=== PATIENT | male | born 1950 ===

== ENCOUNTER 2017-11-20 16:59 | Emergency (ER) | payer OTHER ==
[2017-11-20 17:08] VITALS: BMI 25.6
[2017-11-20] MEDS ORDERED: Sodium Chloride 0.9% 1,000 ML IV STA (18:33)
--- NOTE | 2017-11-20 18:38 | C.PDOC ---
History Of Present Illness 67 y/o M c PMHx DM p/w dizziness and posterior neck pain x 3 days. Patient states he has had this pain for over 2 months but that it is much worse in the past 3 days. He describes the dizziness as a lightheadedness and denies a spinning sensation. He states it is associated with an achy posterior neck pain and the lightheadedness seems to be reproducible when flexing the neck forward. He also reports mild frontal headache. He states he did not go to clinic for these symptoms because they were not open. He also reports a R sided lower back pain that is worse when walking and has been present for years and numbness of his bilateral feet for a very long time, saw podiatry yesterday. He denies fever , neck stiffness, nausea, vomiting, dyspnea, chest pain, palpitations, dysuria, hematuria, motor weakness, syncope. Time Seen by Provider: 11/20/17 18:00 Chief Complaint (Nursing): Dizziness/Lightheaded Past Medical History Vital Signs: Last Vital Signs Temp 99.5 F 11/20/17 17:08 Pulse 83 11/20/17 17:08 Resp 18 11/20/17 17:08 BP 130/73 11/20/17 17:08 Pulse Ox 98 11/20/17 20:03 Family History: States: No Known Family Hx - Social History Hx Alcohol Use: No Hx Substance Use: No - Immunization History Hx Tetanus Toxoid Vaccination: No Hx Influenza Vaccination: No Hx Pneumococcal Vaccination: No Review Of Systems Except As Marked, All Systems Reviewed And Found Negative. Constitutional: Negative for: Fever Respiratory: Negative for: Shortness of Breath Physical Exam - Physical Exam Additional Physical Exam Comments: Constitutional: No acute distress. Head: Normocephalic. Atraumatic. Eyes: PERRL. ENT: Moist mucous membranes. Neck: Supple. No midline tenderness. No nuchal rigidity. Cardiovascular: Regular rate. Radial pulse 2+ bilaterally. Chest: No tenderness. Respiratory: Clear to auscultation bilaterally. GI: Soft. Nontender. Nondistended. Back: No CVA tenderness. No midline tenderness. Musculoskeletal: No tenderness or swelling of extremities. Skin: No rash. Neurologic: Alert, no focal deficit. Finger to nose, heel to ramírez normal. Gait steady. Romberg normal. ED Course And Treatment - Laboratory Results Result Diagrams: 11/20/17 18:51 11/20/17 18:51 O2 Sat by Pulse Oximetry: 98 Medical Decision Making Medical Decision Making: Head CT FINDINGS: Brain: There is diffuse cerebral atrophy present, consistent with this patient' s age. There are chronic microvascular ischemic changes. No hemorrhage. Ventricles: Unremarkable. No ventriculomegaly. Bones/joints: Unremarkable. No acute fracture. Soft tissues: Unremarkable. Sinuses: There is mucosal thickening in the ethmoid sinuses. Mastoid air cells: Unremarkable as visualized. No mastoid effusion. IMPRESSION: No acute findings Cervical spine CT FINDINGS: Vertebrae: there is a suggestion of multiple lucent ovoid osseous lesions in the cervical spine; for example, 2 separate osseous lesions are questioned anteriorly and posteriorly in the C4 vertebral body. No acute fracture. Discs/spinal canal/neural foramina: There is severe subchondral sclerosis and at C5-6 and C6-7. There is mild C5-C6 and C6-C7 disc osteophyte complex formation and with broad- based disc bulges. There is bilateral moderate facet hypertrophy at C7-T1. No spinal canal stenosis. Soft tissues: Unremarkable. Lung apices: Mild subpleural emphysema is noted at the lung bases. IMPRESSION: Question multiple vertebral osseous lesions, for which diagnostic considerations would include metastasis and myeloma. MRI correlation may be of value. Emphysema. Moderate cervical and spondylosis. Labs unremarkable. EKG shows no arrhythmia, 82 bpm, NSR, no ST elevations. Informed patient and family at bedside of CT spine results. Disposition - Disposition Referrals: [facility] [Outside] Disposition: HOME/ ROUTINE Disposition Time: 20:47 Condition: STABLE Additional Instructions: FINDINGS: Brain: There is diffuse cerebral atrophy present, consistent with this patient' s age. There are chronic microvascular ischemic changes. No hemorrhage. Ventricles: Unremarkable. No ventriculomegaly. Bones/joints: Unremarkable. No acute fracture. Soft tissues: Unremarkable. Sinuses: There is mucosal thickening in the ethmoid sinuses. Mastoid air cells: Unremarkable as visualized. No mastoid effusion. IMPRESSION: No acute findings FINDINGS: Vertebrae: there is a suggestion of multiple lucent ovoid osseous lesions in the cervical spine; for example, 2 separate osseous lesions are questioned anteriorly and posteriorly in the C4 vertebral body. No acute fracture. Discs/spinal canal/neural foramina: There is severe subchondral sclerosis and at C5-6 and C6-7. There is mild C5-C6 and C6-C7 disc osteophyte complex formation and with broad- based disc bulges. There is bilateral moderate facet hypertrophy at C7-T1. No spinal canal stenosis. Soft tissues: Unremarkable. Lung apices: Mild subpleural emphysema is noted at the lung bases. IMPRESSION: Question multiple vertebral osseous lesions, for which diagnostic considerations would include metastasis and myeloma. MRI correlation may be of value. Emphysema. Moderate cervical and spondylosis. Instructions: Bone Metastasis Forms: [employer] (Icelandic) - Clinical Impression Clinical Impression: Lightheaded, Neck pain, Metastasis to vertebral column of unknown origin - Scribe Statement The provider has reviewed the documentation as recorded by the Scribe Akbar Bee All medical record entries made by the Scribe were at my direction and personally dictated by me. I have reviewed the chart and agree that the record accurately reflects my personal performance of the history, physical exam, medical decision making, and the department course for this patient. I have also personally directed, reviewed, and agree with the discharge instructions and disposition.
[2017-11-20] MEDS ORDERED: Sodium Chloride 0.9% 1,000 ML ONE (18:49)
[2017-11-20 18:54] LABS: BASO % 0.7 % (0.0-2.0); EOS # 0.1 K/uL (0.0-0.7); EOS % 2.2 % (0.0-4.0); HEMOGLOBIN 11.8 g/dL (12.0-18.0); LYMPH # 0.8 K/uL (1.0-4.3); MEAN CELL VOLUME 89.9 fL (80.0-94.0); MEAN CORPUSCULAR HEMOGLOBIN 30.9 pg (27.0-31.0); MEAN CORPUSCULAR HGB CONC 34.3 g/dL (33.0-37.0); MEAN PLATELET VOLUME 10.6 fL (7.2-11.7); MONO % 18.6 % (0.0-10.0); NEUT # 3.5 K/uL (1.8-7.0); NEUT % 63.5 % (50.0-75.0); NRBC % 0.1 % (0.0-2.0); RBC 3.82 Mil/uL (4.40-5.90); RED CELL DISTRIBUTION WIDTH 12.8 % (11.5-14.5); WHITE BLOOD COUNT 5.5 K/uL (4.8-10.8)
[2017-11-20 19:00] LABS: URINE BACTERIA RARE (<OCC); URINE BILIRUBIN NEGATIVE (NEGATIVE); URINE BLOOD 1+ (NEGATIVE); URINE CLARITY Hazy (Clear); URINE COLOR Yellow (YELLOW); URINE GLUCOSE (UA) NORMAL (Normal); URINE LEUKOCYTE ESTERASE NEG Leu/uL (Negative); URINE PROTEIN 2+ mg/dL (NEGATIVE); URINE UROBILINOGEN NORMAL mg/dL (0.2-1.0)
[2017-11-20 19:08] LABS: ALB/GLOB RATIO 1.2 (1.0-2.1); ALT/SGPT 36 U/L (21-72); AST/SGOT 31 U/L (17-59); BLOOD UREA NITROGEN 14 mg/dL (9-20); CALCIUM 9.4 mg/dl (8.6-10.4); GFR AFRICAN-AMERICAN > 60; GFR NON-AFRICAN AMERICAN > 60
[2017-11-20 22:10] VITALS: BP 142/79; PULSE 73; RESP 20; TEMP 98.8; O2SAT 96
--- NOTE | 2017-11-21 08:11 | CT ---
Date of service: 11/20/2017 PROCEDURE: CT HEAD WITHOUT CONTRAST. HISTORY: headache COMPARISON: None available. TECHNIQUE: Axial computed tomography images were obtained through the head/brain without intravenous contrast. Radiation dose: Total exam DLP = 866 mGy-cm. This CT exam was performed using one or more of the following dose reduction techniques: Automated exposure control, adjustment of the mA and/or kV according to patient size, and/or use of iterative reconstruction technique. FINDINGS: HEMORRHAGE: No intracranial hemorrhage. BRAIN: Diffuse cerebral atrophy present. Scattered focal lucencies in the subcortical and periventricular white matter suggestive for chronic microvascular ischemic change. VENTRICLES: Unremarkable. No hydrocephalus. CALVARIUM: Unremarkable. PARANASAL SINUSES: Mucosal thickening in the ethmoid sinuses. MASTOID AIR CELLS: Unremarkable as visualized. No inflammatory changes. OTHER FINDINGS: None. IMPRESSION: No acute intracranial abnormality. If focal neurologic deficit persists, consider correlation with MRI. These findings were preliminarily reported at 7:47 p.m. on 11/20/[address] Adrianne Houston from [facility].
--- NOTE | 2017-11-21 08:40 | CT ---
Date of service: 11/20/2017 PROCEDURE: CT Cervical Spine without contrast HISTORY: neck pain COMPARISON: None available. TECHNIQUE: Axial computed tomography images were obtained of the cervical spine without the use of intravenous contrast. Coronal and sagittal reformatted images were created and reviewed. Radiation dose: Total exam DLP = 421.81 mGy-cm. This CT exam was performed using one or more of the following dose reduction techniques: Automated exposure control, adjustment of the mA and/or kV according to patient size, and/or use of iterative reconstruction technique. FINDINGS: VERTEBRAE: The vertebral bodies are maintained in height. Normal alignment is maintained. The atlantoaxial articulation and odontoid process are intact. Multiple circumscribed rounded lucent lesions are seen in multiple cervical vertebral bodies. This raises suspicion of multiple myeloma or metastatic disease. Consider further radiographic evaluation as well as correlation with immuno electrophoresis. DISCS/SPINAL CANAL/NEURAL FORAMINA: There is mild narrowing of the C5-6 and C6-7 intervertebral disc spaces consistent with degenerative disc disease. The remaining intervertebral disc spaces are maintained in height. PARASPINAL SOFT TISSUES: Numerous prominent lymph nodes are noted in levels 1, 2 and 3 without pathologic enlargement greater than 1.5 cm short axis. OTHER FINDINGS: None. IMPRESSION: No fracture/ dislocation. Degenerative disc disease C5-6 and C6-7. Numerous circumscribed small lytic lesions of the cervical vertebrae. Consider metastasis or multiple myeloma. Mild cervical lymphadenopathy. The preliminary findings for this examination were reported by [facility] at 8:02 p.m. on 11/20/2017. There is concurrence of this report with the preliminary findings.
--- NOTE | 2017-11-21 10:54 | RAD ---
Chest x-ray two views History: Pneumonia. Comparison: None available. Findings: Mild venous congestion. Biapical pleural thickening with upper lobe granulomatous changes. Bilateral hilar prominence. Tortuous ectatic aorta. Degenerative changes in the spine and shoulders. Impression: Mild venous congestion. Biapical pleural thickening with upper lobe granulomatous changes. Bilateral hilar prominence. Tortuous ectatic aorta.
--- NOTE | 2017-11-21 23:40 | CARD ---
APPROVED REPORT Date of service: 11/20/2017 EKG Measurement Heart [id number] <Conclusion> Normal sinus rhythm T wave abnormality, consider lateral ischemia Abnormal ECG
== END 2017-11-20 22:11 | disposition home or self-care (01) ==
LOC: C.ER 16:59
DX: R42 Dizziness and giddiness (principal); M54.2 Cervicalgia; C79.51 Secondary malignant neoplasm of bone
CPT/HCPCS: 70450; 71046; 72125; 80053; 81001; 82948; 85025; 87086; 93005; 96361; 96374; 99285; J1885; J7030

== ENCOUNTER 2017-11-23 14:01 | Inpatient (IN) | payer OTHER ==
[2017-11-23 14:14] VITALS: BMI 26.6
--- NOTE | 2017-11-23 14:20 | C.PDOC ---
History Of Present Illness 67 year old male presents to the ER with tongue numbness onset 1 hour [employer]OLD[employer] that has resolved, now complaining of numbness to the tips of his left 2nd to 5th fingers and some weakness to the left arm and bilateral legs. Patient states is able to ambulate without any difficulty, denies any other complaints. Patient was seen on the 11/20/17 for vertigo like dizziness and neck pain. Patient reports he is compliant with his diabetes medication. Time Seen by Provider: 11/23/17 14:19 Chief Complaint (Nursing): Dizziness/Lightheaded History Per: Patient History/Exam Limitations: no limitations Onset/Duration Of Symptoms: Hrs Current Symptoms Are (Timing): Still Present Recent travel outside of the [place]: No Past Medical History Reviewed: Historical Data, Nursing Documentation, Vital Signs Vital Signs: Last Vital Signs Temp 98.6 F 11/23/17 14:14 Pulse 85 11/23/17 14:14 Resp 18 11/23/17 14:14 BP 115/69 11/23/17 14:14 Pulse Ox 99 11/23/17 15:06 - Medical History PMH: Diabetes Family History: States: Unknown Family Hx - Social History Hx Alcohol Use: No Hx Substance Use: No - Immunization History Hx Tetanus Toxoid Vaccination: No Hx Influenza Vaccination: No Hx Pneumococcal Vaccination: No Review Of Systems Except As Marked, All Systems Reviewed And Found Negative. Cardiovascular: Negative for: Chest Pain, Palpitations Respiratory: Negative for: Cough, Shortness of Breath Gastrointestinal: Negative for: Nausea, Vomiting Neurological: Positive for: Weakness, Numbness Physical Exam - Physical Exam Appears: Non-toxic Skin: Normal Color, Warm, Dry Head: Atraumatic, Normacephalic Eye(s): bilateral: Normal Inspection, PERRL, EOMI Oral Mucosa: Moist Neck: Normal, No Midline Cervical Tenderness, No Paracervical Tenderness, Supple Chest: Symmetrical, No Tenderness Cardiovascular: Rhythm Regular Respiratory: Normal Breath Sounds, No Rales, No Rhonchi, No Wheezing Gastrointestinal/Abdominal: Soft, No Tenderness Extremity: No Normal ROM (x4) Neurological/Psych: Other (See NIH) ED Course And Treatment - Laboratory Results Result Diagrams: 11/23/17 14:25 11/23/17 14:25 ECG: Interpreted By Me, Viewed By Me ECG Rhythm: Sinus Rhythm ECG Interpretation: Normal, No Changes From Prior (11/20/17) Interpretation Of ECG: T wave inversions at 1, 2, F, v3-6 Rate From EC O2 Sat by Pulse Oximetry: 99 (Room air) Pulse Ox Interpretation: Normal NIHSS Stroke Scale - Date/Time Evaluation Performed Date Performed: 11/23/17 Time Performed: 14:19 When Was NIHSS Performed: Code Stroke - How Severe is the Stroke Level of Consciousness: 0=Alert LOC to Questions: 0=Both comments correct LOC to commands: 0=Obeys both correctly Best Gaze: 0=Normal Visual: 0=No visual loss Facial: 0=Normal Motor Arm - Left: 0=No drift Motor Arm - Right: 0=No drift Motor Leg - Left: 0=No drift Motor Leg - Right: 0=No drift Limb Ataxia: 0=Absent Sensory: 1=Mild to moderate loss Best Language: 0=No aphasia Dysarthia: 0=Normal articulation Extinction & Inattention (Neglect): 0=Normal, no object Score: 1 NIHSS Stroke Scale 2 - Date/Time Evaluation Performed Date Performed: 11/23/17 Time Performed: 14:59 When Was NIHSS Performed: Code Stroke Re-evaluation - How Severe is the Stroke Level of Consciousness: 0=Alert LOC to Questions: 0=Both comments correct LOC to commands: 0=Obeys both correctly Best Gaze: 0=Normal Visual: 0=No visual loss Facial: 0=Normal Motor Arm - Left: 0=No drift Motor Arm - Right: 0=No drift Motor Leg - Left: 0=No drift Motor Leg - Right: 0=No drift Limb Ataxia: 0=Absent Sensory: 1=Mild to moderate loss Best Language: 0=No aphasia Dysarthia: 0=Normal articulation Extinction & Inattention (Neglect): 0=Normal, no object Score: 1 Progress - Re-Evaluation Re-evaluation Note: 11/23/17 14:22 D/W DR CULVER AWARE OF ER FINDINGS. PT NOT A TPA CANDIDATE 11/23/17 14:[address] GONZALEZ 11/23/17 14:59 PS TRIED TO FU @ [facility] TODAY BUT [facility] WAS A WALK IN, WAS REFERRED TO ER 11/23/17 15:17 D/W DR Manas BEE WILL ADMIT - Data Reviewed Data Reviewed: Lab, Diagnostic imaging, EKG, Old records - Critical Care Citical Care: Excluding Proc Time Critical Care Time: 90 minutes rTPA Inclusion/Exclusion - Refusal of Treatment Patient Refused Treatment: No - Inclusion Criteria for Altepase Patient is 18 years or Older: Yes The Clinical Diagnosis of Ischemic Stroke That is Causing a Potentially Disabling Neurological Deficit: Yes Time of Onset is Well Established to be Less Than 270 Minute Before Treatment Would Begin: Yes Risk/Benefit Discussed With Patient/Family Member Present: Yes - Exclusion Criteria for Altepase Uncontrolled Hypertension at Time of Treatment (Systolic BP above 185 or Diastolic BP above 110 mmHg): No Active Internal Bleeding: No Known Bleeding Diathesis Including but Not Limited to: Platelets Below 100,000/ mm,PTT Above 40 sec After Heparin Use, Current Use of Oral Anitcoagulant With INR Greater Than 1.7 or PT Greater Than 15 secs: No Evidence of an Intracranial Hemorrhage: No Evidence of Major Acute Infarct With Signs Greater Than 1/3 MCA Territory: No Suspicion of Subarachnoid Hemorrhage on Pretreatment Evaluation Even if CT Head Negative For Hemorrhage: No - Warning to TPA With Conditions Following Conditions Weighed Against Anticipated Benefit: Yes Condition: Stroke Serevity Too Mild Medical Decision Making Medical Decision Making: Plan: * Blood work * CT head * EKG * CXR Disposition Counseled Patient/Family Regarding: Studies Performed, Diagnosis - Disposition Disposition: HOSPITALIZED Disposition Time: 15:23 Condition: STABLE Forms: [email or web address] [facility] (Indian) - POA Present On Arrival: None - Clinical Impression Clinical Impression: Metastasis to vertebral column of unknown origin, TIA (transient ischemic attack) - Scribe Statement The provider has reviewed the documentation as recorded by the Scribe Jasson Negron All medical record entries made by the Scribe were at my direction and personally dictated by me. I have reviewed the chart and agree that the record accurately reflects my personal performance of the history, physical exam, medical decision making, and the department course for this patient. I have also personally directed, reviewed, and agree with the discharge instructions and disposition. Decision To Admit - Pt Status Changed To: Hospital Disposition Of: Inpatient - Admit Certification Admit to Inpatient:: After my assessment, the patient will require hospitalization for at least two midnights. This is because of the severity of symptoms shown, intensity of services needed, and/or the medical risk in this patient being treated as an outpatient. - InPatient: Physician Admission Certification: I certify that this patient requires 2 or more midnights of care for the following reason:: SEE NOTE - . Bed Request Type: Telemetry Admitting Physician: Edwar Bee Patient Diagnosis: Metastasis to vertebral column of unknown origin, TIA (transient ischemic attack)
[2017-11-23 14:30] LABS: BASO % 0.4 % (0.0-2.0); EOS # 0.4 K/uL (0.0-0.7); EOS % 7.3 % (0.0-4.0); HEMOGLOBIN 11.6 g/dL (12.0-18.0); LYMPH # 1.5 K/uL (1.0-4.3); LYMPH % 27.1 % (20.0-40.0); MEAN CELL VOLUME 89.6 fL (80.0-94.0); MEAN CORPUSCULAR HEMOGLOBIN 30.9 pg (27.0-31.0); MEAN CORPUSCULAR HGB CONC 34.5 g/dL (33.0-37.0); MEAN PLATELET VOLUME 10.9 fL (7.2-11.7); MONO # 1.1 K/uL (0.0-0.8); MONO % 20.3 % (0.0-10.0); NEUT # 2.4 K/uL (1.8-7.0); NEUT % 44.9 % (50.0-75.0); PLATELET COUNT 154 K/uL (130-400); RBC 3.74 Mil/uL (4.40-5.90); RED CELL DISTRIBUTION WIDTH 12.7 % (11.5-14.5); WHITE BLOOD COUNT 5.4 K/uL (4.8-10.8)
[2017-11-23 14:38] LABS: INR 1.1; PROTHROMBIN TIME 12.1 SECONDS (9.7-12.2)
--- NOTE | 2017-11-23 14:42 | CT ---
Date of service: 11/23/2017 PROCEDURE: CT HEAD WITHOUT CONTRAST. HISTORY: Code Stroke COMPARISON: Comparison made with prior CT scan brain . TECHNIQUE: Axial computed tomography images were obtained through the head/brain without intravenous contrast. Radiation dose: Total exam DLP = 908.3 mGy-cm. This CT exam was performed using one or more of the following dose reduction techniques: Automated exposure control, adjustment of the mA and/or kV according to patient size, and/or use of iterative reconstruction technique. FINDINGS: HEMORRHAGE: No acute parenchymal, subarachnoid nor extra-axial hemorrhage. BRAIN: No mass effect or edema. No atrophy or chronic microvascular ischemic changes. Mild generalized volume loss VENTRICLES: No obstructive hydrocephalus. CALVARIUM: Calvarium intact Note made of what appears represent mild bilateral frontal scalp scarring PARANASAL SINUSES: Unremarkable as visualized. No significant inflammatory changes. MASTOID AIR CELLS: Unremarkable as visualized. No inflammatory changes. OTHER FINDINGS: None. IMPRESSION: No acute intracranial hemorrhage. Minor chronic periventricular white matter ischemic changes with what could represent a few tiny scattered chronic lacunar-type infarcts. . Mild generalized volume loss. Note these findings were discussed Dr. Owen at approximately 2:37 p.m. with written down and read back verification.
[2017-11-23 14:43] LABS: ALB/GLOB RATIO 1.2 (1.0-2.1); ALBUMIN 4.1 g/dL (3.5-5.0); ALT/SGPT 38 U/L (21-72); AST/SGOT 28 U/L (17-59); BLOOD UREA NITROGEN 14 mg/dL (9-20); CALCIUM 9.2 mg/dl (8.6-10.4); GFR NON-AFRICAN AMERICAN > 60; HDL CHOLESTEROL 29 mg/dL (30-70)
[2017-11-23 14:53] LABS: LDL CHOLESTEROL 63 mg/dL (0-129)
[2017-11-23 15:18] LABS: BANDS 3 % (0-2); EOSINOPHIL 9 % (0-4); LYMPHOCYTE 25 % (20-40); MONOCYTE 22 % (0-10); NEUTROPHIL 40 % (50-75); PLATELET ESTIMATE NORMAL (NORMAL); REACTIVE LYMPHOCYTES 1 % (0-0); TOTAL CELLS COUNTED 100
[2017-11-23 15:20] LABS: ANISOCYTOSIS SLIGHT; BURR CELLS SLIGHT; HYPOCHROMIC SLIGHT; POIKILOCYTOSIS SLIGHT
[2017-11-23 15:22] LABS: GIANT PLATELETS PRESENT; LARGE PLATELETS PRESENT
--- NOTE | 2017-11-23 15:49 | CP.PCM.HP ---
<Marium Aleman - Last Filed: 11/23/17 18:30> History of Present Illness - History of Present Illness History of Present Illness: Resident History & Physical for Hospitalist Service Patient is a 67 year old male with past medical history T2DM presenting with an episode of tongue and left upper extremity weakness. He states this numbness was at the tip of tongue and also from his left elbow to his fingertips. The episode lasted approximately 15 minutes, after which the numbness mostly resolved. However he currently has residual numbness in his left hand at the tips of his 1st three fingers. Patient also admits to dizziness, which occurs whenever he turns his head to the right or left. Patient had presented to the ED 3 days prior with similar dizziness and posterior neck pain. At that time cervical spine CT was done which showed questionable multiple vertebral osseous lesions, for which diagnostic considerations would include metastasis and myeloma, mild cervical lymphadenopathy. Denies headache, visual or hearing changes, seizures, bowel or bladder incontinence. History was obtained with the assistance of the daughter Natalie who was present at bedside. Past medical history: T2DM Past surgical: None Social: Denies alcohol, tobacco products, recreational drug use Allergies: NKDA Family history: Mother (stomach cancer, T2DM), Father (M.I., T2DM) Full code Present on Admission - Present on Admission Any Indicators Present on Admission: No Review of Systems - Constitutional Constitutional: absent: Chills, Fever - EENT Eyes: absent: Change in Vision Ears: absent: Abnormal Hearing Nose/Mouth/Throat: absent: Sore Throat - Cardiovascular Cardiovascular: absent: Chest Pain, Diaphoresis, Dyspnea - Respiratory Respiratory: absent: Cough - Gastrointestinal Gastrointestinal: absent: Abdominal Pain, Change in Bowel Habits - Genitourinary Genitourinary: absent: Dysuria, Flank Pain - Neurological Neurological: Dizziness, Numbness, Focal Weakness. absent: Abnormal Speech, Confusion, Frequent Falls, Headaches, Syncope Past Patient History - Past Social History Smoking Status: Never Smoked - ENDOCRINE/METABOLIC Hx Endocrine Disorders: Yes Hx Diabetes Mellitus Type 2: Yes - PSYCHIATRIC Hx Substance Use: No - SURGICAL HISTORY Hx Surgeries: No Meds Allergies/Adverse Reactions: Allergies Allergy/AdvReac Type Severity Reaction Status Date / Time No Known Allergies Allergy Verified 11/23/17 14:14 Physical Exam - Constitutional Appears: Non-toxic, No Acute Distress - Head Exam Head Exam: ATRAUMATIC, NORMOCEPHALIC - Eye Exam Eye Exam: EOMI, Normal appearance, PERRL - ENT Exam ENT Exam: Mucous Membranes Moist, Normal Exam - Neck Exam Neck exam: Positive for: Normal Inspection. Negative for: Lymphadenopathy, Tenderness - Respiratory Exam Respiratory Exam: Clear to Auscultation Bilateral, NORMAL BREATHING PATTERN. absent: Rales, Rhonchi, Wheezes - Cardiovascular Exam Cardiovascular Exam: REGULAR RHYTHM, +S1, +S2. absent: Systolic Murmur - GI/Abdominal Exam GI & Abdominal Exam: Normal Bowel Sounds, Soft. absent: Distended, Firm, Guarding, Organomegaly, Tenderness - Back Exam Back exam: NORMAL INSPECTION. absent: CVA tenderness (L), CVA tenderness (R) - Neurological Exam Neurological exam: Alert, CN II-XII Intact, Oriented x3 - Expanded Neurological Exam Expanded Speech: Fluid Speech Cranial nerves: EOM's Intact: Normal, Facial Palsey w/Forehead Movement: Normal , Facial Palsey w/o Forehead Movement: Normal, Facial Sensation: Normal, Tongue Deviation: Normal Cerebellar Function: Finger to Nose: Normal, Heel to Barnard: Normal Sensory exam: Lower Extremity Light Touch: Normal, Upper Extremity Light Touch: Normal Neuro motor strength exam: Left Upper Extremity: 5, Right Upper Extremity: 5, Left Lower Extremity: 5, Right Lower Extremity: 5 Coma Scale Eye Opening: SPONTANEOUS Coma Scale Motor Response: OBEYS COMMANDS Coma Scale Verbal: Oriented Coma Scale Total: 15 - Psychiatric Exam Psychiatric exam: Normal Affect, Normal Mood - Skin Skin Exam: Dry, Intact, Normal Color Results - Vital Signs Recent Vital Signs: Last Vital Signs Temp 98.6 F 11/23/17 14:14 Pulse 85 11/23/17 14:14 Resp 18 11/23/17 14:14 BP 115/69 11/23/17 14:14 Pulse Ox 99 11/23/17 15:27 - Labs Result Diagrams: 11/23/17 14:25 11/23/17 14:25 Labs: Laboratory Results - last 24 hr 11/23/17 11/23/17 11/23/17 14:14 14:25 14:25 WBC 5.4 RBC 3.74 L Hgb 11.6 L Hct 33.5 L MCV 89.6 MCH 30.9 MCHC 34.5 RDW 12.7 Plt Count 154 MPV 10.9 Neut % (Auto) 44.9 L Lymph % (Auto) 27.1 Lyon % (Auto) 20.3 H Eos % (Auto) 7.3 H Baso % (Auto) 0.4 Neut # (Auto) 2.4 Lymph # (Auto) 1.5 Lyon # (Auto) 1.1 H Eos # (Auto) 0.4 Baso # (Auto) 0.0 Neutrophils % (Manual) 40 L Band Neutrophils % 3 H Lymphocytes % (Manual) 25 Reactive Lymphs % 1 H Monocytes % (Manual) 22 H Eosinophils % (Manual) 9 H Platelet Estimate Normal Large Platelets Present Giant Platelets Present Hypochromasia (manual) Slight Poikilocytosis (manual Slight Anisocytosis (manual) Slight Myrna Cells Slight PT 12.1 INR 1.1 APTT 32 Sodium Potassium Chloride Carbon Dioxide Anion Gap BUN Creatinine Est GFR ( Amer) Est GFR (Non-Af Amer) POC Glucose (mg/dL) 112 H Random Glucose Hemoglobin A1c Calcium Total Bilirubin AST ALT Alkaline Phosphatase Troponin I Total Protein Albumin Globulin Albumin/Globulin Ratio Triglycerides Cholesterol LDL Cholesterol Direct HDL Cholesterol Blood Type 11/23/17 11/23/17 11/23/17 14:25 14:25 15:00 WBC RBC Hgb Hct MCV MCH MCHC RDW Plt Count MPV Neut % (Auto) Lymph % (Auto) Lyon % (Auto) Eos % (Auto) Baso % (Auto) Neut # (Auto) Lymph # (Auto) Lyon # (Auto) Eos # (Auto) Baso # (Auto) Neutrophils % (Manual) Band Neutrophils % Lymphocytes % (Manual) Reactive Lymphs % Monocytes % (Manual) Eosinophils % (Manual) Platelet Estimate Large Platelets Giant Platelets Hypochromasia (manual) Poikilocytosis (manual Anisocytosis (manual) [place] Cells PT INR APTT Sodium 143 Potassium 4.5 Chloride 102 Carbon Dioxide 29 Anion Gap 17 BUN 14 Creatinine 1.0 Est GFR ( Amer) > 60 Est GFR (Non-Af Amer) > 60 POC Glucose (mg/dL) Random Glucose 112 H Hemoglobin A1c 6.7 H Calcium 9.2 Total Bilirubin 0.5 AST 28 ALT 38 Alkaline Phosphatase 81 Troponin I 0.0150 Total Protein 7.7 Albumin 4.1 Globulin 3.5 Albumin/Globulin Ratio 1.2 Triglycerides 95 Cholesterol 125 LDL Cholesterol Direct 63 HDL Cholesterol 29 L Blood Type B POSITIVE Assessment & Plan - Assessment and Plan (Free Text) Plan: Numbness - TIA vs stroke - Code stroke called in ED - Head CT shows no acute intracranial hemorrhage. Minor chronic periventricular white matter ischemic changes with what could represent a few tiny scattered chronic lacunar-type infarcts. Mild generalized volume loss. - Brain MRI shows shows no evidence of acute intracranial hemorrhage or infarction. Minor chronic white matter ischemic changes. Mild generalized volume loss. - CXR shows mild left basilar atelectasis. Right hilar prominence. - Aspirin 81 mg daily - Crestor 10 mg PO HS - Neurochecks - Followup ECHO - Followup carotid duplex scan - Neurology consulted. Appreciate recs. - PT/OT consulted. Questionable multiple vertebral osseous lesions - Incidental finding on CT from previous ED visit - Possibly multiple myeloma vs. mets - Followup kappa/lambda with reflex - Followup spep, upep - Followup peripheral smear History of T2DM - Accuchecks - Continue home glimepiride 4 mg PO daily - Continue metformin 1000 mg BID PPX - Lovenox 40 mg SC daily - No GI prophylaxis indicated at this time Marium Aleman PGY-1 - Date & Time Date: 11/23/17 Time: 15:53 <Garret Kelley - Last Filed: 11/23/17 18:54> Results - Vital Signs Recent Vital Signs: Last Vital Signs Temp 98.6 F 11/23/17 14:14 Pulse 86 11/23/17 18:00 Resp 18 11/23/17 18:00 BP 132/76 11/23/17 18:00 Pulse Ox 100 11/23/17 18:00 - Labs Result Diagrams: 11/23/17 14:25 11/23/17 14:25 Labs: Laboratory Results - last 24 hr 11/23/17 11/23/17 11/23/17 14:14 14:25 14:25 WBC 5.4 RBC 3.74 L Hgb 11.6 L Hct 33.5 L MCV 89.6 MCH 30.9 MCHC 34.5 RDW 12.7 Plt Count 154 MPV 10.9 Neut % (Auto) 44.9 L Lymph % (Auto) 27.1 Lyon % (Auto) 20.3 H Eos % (Auto) 7.3 H Baso % (Auto) 0.4 Neut # (Auto) 2.4 Lymph # (Auto) 1.5 Lyon # (Auto) 1.1 H Eos # (Auto) 0.4 Baso # (Auto) 0.0 Neutrophils % (Manual) 40 L Band Neutrophils % 3 H Lymphocytes % (Manual) 25 Reactive Lymphs % 1 H Monocytes % (Manual) 22 H Eosinophils % (Manual) 9 H Platelet Estimate Normal Large Platelets Present Giant Platelets Present Hypochromasia (manual) Slight Poikilocytosis (manual Slight Anisocytosis (manual) Slight [place] Cells Slight PT 12.1 INR 1.1 APTT 32 Sodium Potassium Chloride Carbon Dioxide Anion Gap BUN Creatinine Est GFR ( Amer) Est GFR (Non-Af Amer) POC Glucose (mg/dL) 112 H Random Glucose Hemoglobin A1c Calcium Total Bilirubin AST ALT Alkaline Phosphatase Troponin I Total Protein Albumin Globulin Albumin/Globulin Ratio Triglycerides Cholesterol LDL Cholesterol Direct HDL Cholesterol Blood Type Antibody Screen 11/23/17 11/23/17 11/23/17 14:25 14:25 15:00 WBC RBC Hgb Hct MCV MCH MCHC RDW Plt Count MPV Neut % (Auto) Lymph % (Auto) Lyon % (Auto) Eos % (Auto) Baso % (Auto) Neut # (Auto) Lymph # (Auto) Lyon # (Auto) Eos # (Auto) Baso # (Auto) Neutrophils % (Manual) Band Neutrophils % Lymphocytes % (Manual) Reactive Lymphs % Monocytes % (Manual) Eosinophils % (Manual) Platelet Estimate Large Platelets Giant Platelets Hypochromasia (manual) Poikilocytosis (manual Anisocytosis (manual) Myrna Cells PT INR APTT Sodium 143 Potassium 4.5 Chloride 102 Carbon Dioxide 29 Anion Gap 17 BUN 14 Creatinine 1.0 Est GFR ( Amer) > 60 Est GFR (Non-Af Amer) > 60 POC Glucose (mg/dL) Random Glucose 112 H Hemoglobin A1c 6.7 H Calcium 9.2 Total Bilirubin 0.5 AST 28 ALT 38 Alkaline Phosphatase 81 Troponin I 0.0150 Total Protein 7.7 Albumin 4.1 Globulin 3.5 Albumin/Globulin Ratio 1.2 Triglycerides 95 Cholesterol 125 LDL Cholesterol Direct 63 HDL Cholesterol 29 L Blood Type B POSITIVE Antibody Screen Negative Attending/Attestation - Attestation I have personally seen and examined this patient.: Yes I have fully participated in the care of the patient.: Yes I have reviewed all pertinent clinical information: Yes Notes (Text): 11/23/17 18:54 Medical attending: Patient was seen and examined by me, reviewed the above note by the director of medical review, and agree with the above note. By the time we came and saw the patient in the emergency room, the patient reported that all his symptoms had resolved. This is per the translation of the family member at bedside. Earlier they were reporting that they noticed some tongue and mouth numbness as well as some left finger numbness/paresthesias. On her exam he did not have any facial drooping, he did not have tongue deviation. He had good muscle strength in both the upper and lower extremities. He also had sensations intact as well Earlier he underwent MRI, the results which were still pending at this time. Will also get a 2-D echo as well as carotid ultrasound. He is a reported the patient was in the emergency room 3-4 days ago with neck pain and had a CAT scan at that time with this on the report suggested that there is a possibility that he may have multiple myeloma. Workup put in orders for the SPEP, UPEP, lambda and Chains and also try to get a peripheral smear. This being said he didn't have any lab work that might suggest a multiple myeloma such as the elevated calcium, elevated BUN/creatinine, or anemia. I explained to the family member at bedside that if he does well overnight in the MRI report remains negative, that we might discharge him home tomorrow but that they'll have to come back to medical records to pick up operator workup for potential multiple myeloma. He is a patient at the [facility] on [facility] Thank you very much, Garret Kelley
--- NOTE | 2017-11-23 16:13 | RAD ---
HISTORY: Code Stroke COMPARISON: Chest x-ray performed 11/20/17 TECHNIQUE: Chest, one view. FINDINGS: Examination limited by habitus. LUNGS: Mild left basilar atelectasis. No focal consolidation. Right hilar prominence. Please note that chest x-ray has limited sensitivity for the detection of pulmonary masses. PLEURA: No significant pleural effusion identified. No definite pneumothorax . CARDIOVASCULAR: Heart size appears within normal limits. Ectatic aorta. OSSEOUS STRUCTURES: Degenerative changes. VISUALIZED UPPER ABDOMEN: Unremarkable. OTHER FINDINGS: None. IMPRESSION: Mild left basilar atelectasis. Right hilar prominence.
--- NOTE | 2017-11-23 16:53 | MRI ---
Date of service: 11/23/2017 PROCEDURE: MRI BRAIN WITHOUT CONTRAST made with prior HISTORY: TONGUE NUMBNESS, ABN CT NECK RO MM/CA COMPARISON: Comparison made with prior CT scan obtained earlier same day. TECHNIQUE: Multiplanar, multisequence MR images of the brain were obtained without intravenous contrast enhancement. FINDINGS: HEMORRHAGE: None no acute parenchymal, subarachnoid or extra-axial hemorrhage. No evidence of hemosiderin deposition seen on gradient echo weighted sequence. DWI: No evidence of an acute or early subacute infarction seen on diffusion imaging. . BRAIN PARENCHYMA: There are a few tiny focal areas of increased T2 signal seen scattered about the deep and subcortical white matter both cerebral hemispheres consistent with tiny chronic appearing lacunar type infarcts. Minimal prolonged T2 signal changes seen in the periventricular white matter likely representing mild FLAIR related CSF interface artifact. No obvious parenchymal nor extra-axial masses or collections seen on this noncontrast study Mild generalized volume loss. There are linear/ curvilinear foci of dark T1 signal along the inferior margin of the patella at the cervicomedullary junction seen only on the sagittal T1 sequence and questionably on the sagittal FLAIR sequence however these findings are likely artifactual and not seen on any other sequences. VENTRICLES: No obstructive hydrocephalus. CRANIUM: Unremarkable. ORBITS: Grossly unremarkable. PARANASAL SINUSES/MASTOIDS: Mild mucoperiosteal inflammatory changes seen within the ethmoid and frontal sinuses. VASCULAR SYSTEM: Visualized major vascular flow voids at skull base patent. OTHER FINDINGS: None. IMPRESSION: No evidence of acute intracranial hemorrhage or infarction. Minor chronic white matter ischemic changes. Mild generalized volume loss.
[2017-11-23] MEDS ORDERED: Dextrose 50% SYRINGE Inj (50 ml) IV PRN (17:55)
[2017-11-23] MEDS ORDERED: Glucagon Recombinant 1 mg Inj IM PRN (17:55)
[2017-11-23 20:02] LABS: TROPONIN I 0.013 ng/mL (0.00-0.120)
[2017-11-23 20:07] LABS: T4 6.77 ug/dL (5.5-11.0)
[2017-11-23 20:15] VITALS: RESP 20
[2017-11-23 20:22] LABS: T3 1.29 nmol/L (1.49-2.60)
[2017-11-23 22:19] LABS: SQUAMOUS EPITHIAL < 1 /hpf (0-5); URINE BILIRUBIN NEGATIVE (NEGATIVE); URINE BLOOD NEGATIVE (NEGATIVE); URINE CLARITY Clear (Clear); URINE COLOR Yellow (YELLOW); URINE GLUCOSE (UA) NORMAL (Normal); URINE LEUKOCYTE ESTERASE NEG Leu/uL (Negative); URINE PROTEIN 2+ mg/dL (NEGATIVE); URINE UROBILINOGEN NORMAL mg/dL (0.2-1.0)
[2017-11-24 08:25] LABS: HEMOGLOBIN 10.5 g/dL (12.0-18.0); MEAN CORPUSCULAR HEMOGLOBIN 30.7 pg (27.0-31.0); MEAN CORPUSCULAR HGB CONC 34.4 g/dL (33.0-37.0); MEAN PLATELET VOLUME 11.3 fL (7.2-11.7); RBC 3.42 Mil/uL (4.40-5.90); WHITE BLOOD COUNT 5.7 K/uL (4.8-10.8)
[2017-11-24 08:36] VITALS: BP 121/68; TEMP 98.5; O2SAT 97
[2017-11-24 08:43] LABS: ALB/GLOB RATIO 1.2 (1.0-2.1); ALBUMIN 3.5 g/dL (3.5-5.0); ALT/SGPT 39 U/L (21-72); AST/SGOT 25 U/L (17-59); BLOOD UREA NITROGEN 14 mg/dL (9-20); GFR NON-AFRICAN AMERICAN > 60
[2017-11-24] MEDS ORDERED: Pneumococcal 23-Valent Vaccine IM ONE (10:00)
[2017-11-24] MEDS ORDERED: Enoxaparin 40 mg Syringe SC SCH (10:00)
--- NOTE | 2017-11-24 11:50 | CP.PCM.DIS ---
<Amish Bridges - Last Filed: 11/24/17 11:50> Provider - Provider Date of Admission: 11/23/17 15:27 Attending physician: Edwar Bee MD Consults: Dr. Damon Time Spent in preparation of Discharge (in minutes): 45 Hospital Course - Lab Results Lab Results: Most Recent Lab Values WBC 5.7 K/uL (4.8-10.8) 11/24/17 08:14 RBC 3.42 Mil/uL (4.40-5.90) L 11/24/17 08:14 Hgb 10.5 g/dL (12.0-18.0) L 11/24/17 08:14 Hct 30.4 % (35.0-51.0) L 11/24/17 08:14 MCV 89.0 fL (80.0-94.0) 11/24/17 08:14 MCH 30.7 pg (27.0-31.0) 11/24/17 08:14 MCHC 34.4 g/dL (33.0-37.0) 11/24/17 08:14 RDW 13.0 % (11.5-14.5) 11/24/17 08:14 Plt Count 148 K/uL (130-400) 11/24/17 08:14 MPV 11.3 fL (7.2-11.7) 11/24/17 08:14 Neut % (Auto) 44.9 % (50.0-75.0) L 11/23/17 14:25 Lymph % (Auto) 27.1 % (20.0-40.0) 11/23/17 14:25 [place] % (Auto) 20.3 % (0.0-10.0) H 11/23/17 14:25 Eos % (Auto) 7.3 % (0.0-4.0) H 11/23/17 14:25 Baso % (Auto) 0.4 % (0.0-2.0) 11/23/17 14:25 Neut # (Auto) 2.4 K/uL (1.8-7.0) 11/23/17 14:25 Lymph # (Auto) 1.5 K/uL (1.0-4.3) 11/23/17 14:25 Lanier # (Auto) 1.1 K/uL (0.0-0.8) H 11/23/17 14:25 Eos # (Auto) 0.4 K/uL (0.0-0.7) 11/23/17 14:25 Baso # (Auto) 0.0 K/uL (0.0-0.2) 11/23/17 14:25 Neutrophils % (Manual) 40 % (50-75) L 11/23/17 14:25 Band Neutrophils % 3 % (0-2) H 11/23/17 14:25 Lymphocytes % (Manual) 25 % (20-40) 11/23/17 14:25 Reactive Lymphs % 1 % (0-0) H 11/23/17 14:25 Monocytes % (Manual) 22 % (0-10) H 11/23/17 14:25 Eosinophils % (Manual) 9 % (0-4) H 11/23/17 14:25 Platelet Estimate Normal (NORMAL) 11/23/17 14:25 Large Platelets Present 11/23/17 14:25 Giant Platelets Present 11/23/17 14:25 Hypochromasia (manual) Slight 11/23/17 14:25 Poikilocytosis (manual Slight 11/23/17 14:25 Anisocytosis (manual) Slight 11/23/17 14:25 Myrna Cells Slight 11/23/17 14:25 ESR 36 mm/hr (0-15) H 11/23/17 19:31 PT 12.1 SECONDS (9.7-12.2) 11/23/17 14:25 INR 1.1 11/23/17 14:25 APTT 32 SECONDS (21-34) 11/23/17 14:25 Sodium 139 mmol/L (132-148) 11/24/17 08:14 Potassium 4.7 mmol/L (3.6-5.2) 11/24/17 08:14 Chloride 103 mmol/L (98-107) 11/24/17 08:14 Carbon Dioxide 26 mmol/L (22-30) 11/24/17 08:14 Anion Gap 14 (10-20) 11/24/17 08:14 BUN 14 mg/dL (9-20) 11/24/17 08:14 Creatinine 0.9 mg/dL (0.8-1.5) 11/24/17 08:14 Est GFR ( Amer) > 60 11/24/17 08:14 Est GFR (Non-Af Amer) > 60 11/24/17 08:14 POC Glucose (mg/dL) 151 mg/dL (65-110) H 11/24/17 06:42 Random Glucose 145 mg/dL (75-110) H 11/24/17 08:14 Hemoglobin A1c 6.7 % (4.2-6.5) H 11/23/17 14:25 Calcium 9.0 mg/dl (8.6-10.4) 11/24/17 08:14 Phosphorus 2.9 mg/dL (2.5-4.5) 11/24/17 08:14 Magnesium 1.8 mg/dL (1.6-2.3) 11/23/17 19:31 Total Bilirubin 0.5 mg/dL (0.2-1.3) 11/24/17 08:14 AST 25 U/L (17-59) 11/24/17 08:14 ALT 39 U/L (21-72) 11/24/17 08:14 Alkaline Phosphatase 88 U/L (38-126) 11/24/17 08:14 Total Creatine Kinase 176 U/L (55-170) H 11/23/17 19:31 CK-MB (Mass) 2.08 ng/mL (0.0-3.38) 11/23/17 19:31 Troponin I 0.0130 ng/mL (0.00-0.120) 11/23/17 19:31 C-React Prot High Sens > 15.00 mg/L (1.00-3.00) H 11/23/17 19:31 Total Protein 6.4 g/dL (6.3-8.3) 11/24/17 08:14 Albumin 3.5 g/dL (3.5-5.0) 11/24/17 08:14 Globulin 2.9 gm/dL (2.2-3.9) 11/24/17 08:14 Albumin/Globulin Ratio 1.2 (1.0-2.1) 11/24/17 08:14 Triglycerides 98 mg/dL (0-149) 11/23/17 19:31 Cholesterol 121 mg/dL (0-199) 11/23/17 19:31 LDL Cholesterol Direct 62 mg/dL (0-129) 11/23/17 19: HDL Cholesterol 29 mg/dL (30-70) L 11/23/17 19: Vitamin B12 403 pg/mL (239-931) 11/23/17 19: Thyroxine (T4) 6.77 ug/dL (5.5-11.0) 11/23/17 19: Total T3 1.29 nmol/L (1.49-2.60) L 11/23/17 19: Urine Color Yellow (YELLOW) 11/23/17 22: Urine Clarity Clear (Clear) 11/23/17 22:13 Urine pH 6.0 (5.0-8.0) 11/23/17 22:13 Ur Specific Sherman 1.008 (1.003-1.030) 11/23/17 22: Urine Protein 2+ mg/dL (NEGATIVE) H 11/23/17 22:13 Urine Glucose (UA) Normal mg/dL (Normal) 11/23/17 22:13 Urine Ketones Negative mg/dL (NEGATIVE) 11/23/17 22:13 Urine Blood Negative (NEGATIVE) 11/23/17 22:13 Urine Nitrate Negative (NEGATIVE) 11/23/17 22:13 Urine Bilirubin Negative (NEGATIVE) 11/23/17 22:13 Urine Urobilinogen Normal mg/dL (0.2-1.0) 11/23/17 22:13 Ur Leukocyte Esterase Neg Chaz/uL (Negative) 11/23/17 22:13 Urine WBC (Auto) < 1 /hpf (0-5) 11/23/17 22:13 Ur Squamous Epith Cells < 1 /hpf (0-5) 11/23/17 22:13 Blood Type B POSITIVE 11/23/17 15:00 Antibody Screen Negative 11/23/17 15:00 - Hospital Course Hospital Course: Upon Admission: Patient is a 67 year old male with past medical history T2DM presenting with an episode of tongue and left upper extremity weakness. He states this numbness was at the tip of tongue and also from his left elbow to his fingertips. The episode lasted approximately 15 minutes, after which the numbness mostly resolved. However he currently has residual numbness in his left hand at the tips of his 1st three fingers. Patient also admits to dizziness, which occurs whenever he turns his head to the right or left. Patient had presented to the ED 3 days prior with similar dizziness and posterior neck pain. At that time cervical spine CT was done which showed questionable multiple vertebral osseous lesions, for which diagnostic considerations would include metastasis and myeloma, mild cervical lymphadenopathy. Denies headache, visual or hearing changes, seizures, bowel or bladder incontinence. History was obtained with the assistance of the daughter Natalie who was present at bedside. Past medical history: T2DM Past surgical: None Social: Denies alcohol, tobacco products, recreational drug use Allergies: NKDA Family history: Mother (stomach cancer, T2DM), Father (M.I., T2DM) Full code Hospital Course: Patient is a 67 yo male who presents to hospital for evaluation of tongue numbness and left upper extremity weakness; MRI head and CT head negative for stroke likely possible TIA; patient came to hospital prior recently for evaluation of neck pain; imaging showed concern for possible osseous lesions concerning for metastasis vs myeloma; tests sent out for myeloma as no imaging suggest an original cancer site; patient symptoms resolved in hospital with no focal neurologic deficits or weakness; patient discharged with cholesterol meds and blood pressure meds; told to followup results of myeloma panel Discharge Plan: Patient is stable for discharge to home as per Dr. Kelley. Patient is to followup with PMD at [facility] within 1 week following discharge from hospital. Patient should follow up with Dr. Damon within 1 week following discharge from hospital. Patient should resume all of his home medications as no medication adjustments were made to his home medicine. Patient should also take the following new medications: lisinopril 5mg by mouth once daily and simvastatin 20 mg by mouth once daily and Aspirin 81mg by mouth once daily. Patient should return to the hospital if symptoms recur or worsen. Patient understands the plan and agrees to the above. Disclaimer: Written above is a synopsis of patient current hospital admission. For full report refer to EMR. Discharge Exam - Head Exam Head Exam: ATRAUMATIC, NORMOCEPHALIC - Eye Exam Eye Exam: EOMI, Normal appearance. absent: Nystagmus, Scleral icterus - Neck Exam Neck exam: Full Rom, Normal Inspection - Respiratory Exam Respiratory Exam: NORMAL BREATHING PATTERN. absent: Rales, Rhonchi, Wheezes, Respiratory Distress - Cardiovascular Exam Cardiovascular Exam: REGULAR RHYTHM, +S1, +S2. absent: Tachycardia - GI/Abdominal Exam GI & Abdominal Exam: Normal Bowel Sounds, Soft. absent: Diminished Bowel Sounds , Distended, Firm, Guarding, Hernia, Tenderness - Extremities Exam Extremities exam: normal inspection - Back Exam Back exam: NORMAL INSPECTION. absent: CVA tenderness (L), CVA tenderness (R), paraspinal tenderness, tenderness - Neurological Exam Neurological exam: Alert, CN II-XII Intact, Oriented x3 - Psychiatric Exam Psychiatric exam: Normal Affect, Normal Mood - Skin Skin Exam: Intact, Normal Color Discharge Plan - Discharge Medications Prescriptions: Lisinopril [Zestril] 5 mg PO DAILY #30 tab Simvastatin 20 mg PO DAILY 30 Days tablet - Follow Up Plan Condition: STABLE Disposition: HOME/ ROUTINE Instructions: Heart Healthy Diet, Transient Ischemic Attack (DC) Additional Instructions: Patient is stable for discharge to home as per Dr. Kelley. Patient is to followup with PMD at [facility] within 1 week following discharge from hospital. Patient should follow up with Dr. Damon within 1 week following discharge from hospital. Patient should resume all of his home medications as no medication adjustments were made to his home medicine. Patient should also take the following new medications: lisinopril 5mg by mouth once daily and simvastatin 20 mg by mouth once daily and Aspirin 81mg by mouth once daily. Patient should return to the hospital if symptoms recur or worsen. Patient understands the plan and agrees to the above. El paciente est estable para la descarga a casa segn el Dr. Kelley. El paciente debe realizar el seguimiento con PMD en la [facility] dentro de la semana posterior al [facility]. El paciente debe hacer un seguimiento con el Dr. Damon dentro de 1 semana despus del [facility] del hospital. El paciente debe reanudar todos los medicamentos de de los santos casa ya que no se realizaron ajustes al medicamento de de los santos casa. El paciente tambin debe giovana los siguientes medicamentos nuevos: lisinopril 5mg por va oral parmjit vez al da y simvastatina 20 mg por va oral parmjit vez al da y Aspirina 81mg por va oral parmjit vez al da. El paciente debe regresar al hospital si los sntomas reaparecen o empeoran. El paciente comprende el plan y acepta lo anterior. Referrals: Tulio Begum MD [Staff Provider] - Ed Damon MD [Staff Provider] - <AllieGarret - Last Filed: 11/24/17 15:08> Provider - Provider Date of Admission: 11/23/17 15:27 Attending physician: Edwar Bee MD Hospital Course - Lab Results Lab Results: Most Recent Lab Values WBC 5.7 K/uL (4.8-10.8) 11/24/17 08:14 RBC 3.42 Mil/uL (4.40-5.90) L 11/24/17 08:14 Hgb 10.5 g/dL (12.0-18.0) L 11/24/17 08:14 Hct 30.4 % (35.0-51.0) L 11/24/17 08:14 MCV 89.0 fL (80.0-94.0) 11/24/17 08:14 MCH 30.7 pg (27.0-31.0) 11/24/17 08:14 MCHC 34.4 g/dL (33.0-37.0) 11/24/17 08:14 RDW 13.0 % (11.5-14.5) 11/24/17 08:14 Plt Count 148 K/uL (130-400) 11/24/17 08:14 MPV 11.3 fL (7.2-11.7) 11/24/17 08:14 Neut % (Auto) 44.9 % (50.0-75.0) L 11/23/17 14:25 Lymph % (Auto) 27.1 % (20.0-40.0) 11/23/17 14:25 Lanier % (Auto) 20.3 % (0.0-10.0) H 11/23/17 14:25 Eos % (Auto) 7.3 % (0.0-4.0) H 11/23/17 14:25 Baso % (Auto) 0.4 % (0.0-2.0) 11/23/17 14:25 Neut # (Auto) 2.4 K/uL (1.8-7.0) 11/23/17 14:25 Lymph # (Auto) 1.5 K/uL (1.0-4.3) 11/23/17 14:25 Lanier # (Auto) 1.1 K/uL (0.0-0.8) H 11/23/17 14:25 Eos # (Auto) 0.4 K/uL (0.0-0.7) 11/23/17 14:25 Baso # (Auto) 0.0 K/uL (0.0-0.2) 11/23/17 14:25 Neutrophils % (Manual) 40 % (50-75) L 11/23/17 14:25 Band Neutrophils % 3 % (0-2) H 11/23/17 14:25 Lymphocytes % (Manual) 25 % (20-40) 11/23/17 14:25 Reactive Lymphs % 1 % (0-0) H 11/23/17 14:25 Monocytes % (Manual) 22 % (0-10) H 11/23/17 14:25 Eosinophils % (Manual) 9 % (0-4) H 11/23/17 14:25 Platelet Estimate Normal (NORMAL) 11/23/17 14:25 Large Platelets Present 11/23/17 14:25 Giant Platelets Present 11/23/17 14:25 Hypochromasia (manual) Slight 11/23/17 14:25 Poikilocytosis (manual Slight 11/23/17 14:25 Anisocytosis (manual) Slight 11/23/17 14:25 [place] Cells Slight 11/23/17 14:25 ESR 36 mm/hr (0-15) H 11/23/17 19:31 PT 12.1 SECONDS (9.7-12.2) 11/23/17 14:25 INR 1.1 11/23/17 14:25 APTT 32 SECONDS (21-34) 11/23/17 14:25 Sodium 139 mmol/L (132-148) 11/24/17 08:14 Potassium 4.7 mmol/L (3.6-5.2) 11/24/17 08:14 Chloride 103 mmol/L (98-107) 11/24/17 08:14 Carbon Dioxide 26 mmol/L (22-30) 11/24/17 08:14 Anion Gap 14 (10-20) 11/24/17 08:14 BUN 14 mg/dL (9-20) 11/24/17 08:14 Creatinine 0.9 mg/dL (0.8-1.5) 11/24/17 08:14 Est GFR ( Amer) > 60 11/24/17 08:14 Est GFR (Non-Af Amer) > 60 11/24/17 08:14 POC Glucose (mg/dL) 258 mg/dL (65-110) H 11/24/17 11:45 Random Glucose 145 mg/dL (75-110) H 11/24/17 08:14 Hemoglobin A1c 6.7 % (4.2-6.5) H 11/23/17 14:25 Calcium 9.0 mg/dl (8.6-10.4) 11/24/17 08:14 Phosphorus 2.9 mg/dL (2.5-4.5) 11/24/17 08:14 Magnesium 1.8 mg/dL (1.6-2.3) 11/23/17 19:31 Total Bilirubin 0.5 mg/dL (0.2-1.3) 11/24/17 08:14 AST 25 U/L (17-59) 11/24/17 08:14 ALT 39 U/L (21-72) 11/24/17 08:14 Alkaline Phosphatase 88 U/L (38-126) 11/24/17 08:14 Total Creatine Kinase 176 U/L (55-170) H 11/23/17 19:31 CK-MB (Mass) 2.08 ng/mL (0.0-3.38) 11/23/17 19:31 Troponin I 0.0130 ng/mL (0.00-0.120) 11/23/17 19:31 C-React Prot High Sens > 15.00 mg/L (1.00-3.00) H 11/23/17 19:31 Total Protein 6.4 g/dL (6.3-8.3) 11/24/17 08:14 Albumin 3.5 g/dL (3.5-5.0) 11/24/17 08:14 Globulin 2.9 gm/dL (2.2-3.9) 11/24/17 08:14 Albumin/Globulin Ratio 1.2 (1.0-2.1) 11/24/17 08:14 Triglycerides 98 mg/dL (0-149) 11/23/17 19: Cholesterol 121 mg/dL (0-199) 11/23/17 19: LDL Cholesterol Direct 62 mg/dL (0-129) 11/23/17 19: HDL Cholesterol 29 mg/dL (30-70) L 11/23/17 19:31 Vitamin B12 403 pg/mL (239-931) 11/23/17 19: Thyroxine (T4) 6.77 ug/dL (5.5-11.0) 11/23/17 19: Total T3 1.29 nmol/L (1.49-2.60) L 11/23/17 19:31 Urine Color Yellow (YELLOW) 11/23/17 22: Urine Clarity Clear (Clear) 11/23/17 22: Urine pH 6.0 (5.0-8.0) 11/23/17 22:13 Ur Specific Sherman 1.008 (1.003-1.030) 11/23/17 22:13 Urine Protein 2+ mg/dL (NEGATIVE) H 11/23/17 22:13 Urine Glucose (UA) Normal mg/dL (Normal) 11/23/17 22:13 Urine Ketones Negative mg/dL (NEGATIVE) 11/23/17 22:13 Urine Blood Negative (NEGATIVE) 11/23/17 22:13 Urine Nitrate Negative (NEGATIVE) 11/23/17 22:13 Urine Bilirubin Negative (NEGATIVE) 11/23/17 22:13 Urine Urobilinogen Normal mg/dL (0.2-1.0) 11/23/17 22:13 Ur Leukocyte Esterase Neg Chaz/uL (Negative) 11/23/17 22:13 Urine WBC (Auto) < 1 /hpf (0-5) 11/23/17 22:13 Ur Squamous Epith Cells < 1 /hpf (0-5) 11/23/17 22:13 Blood Type B POSITIVE 11/23/17 15:00 Antibody Screen Negative 11/23/17 15:00 Attending/Attestation - Attestation I have personally seen and examined this patient.: Yes I have fully participated in the care of the patient.: Yes I have reviewed all pertinent clinical information, including history, physical exam and plan: Yes Notes (Text): 11/24/17 15:01 Medical attending: Patient was seen and examined by me. Agree with the above note by the resident The patient was with family member at bedside and she helped with translation. The symptoms that had prompted the patient to come to the hospital had resolved. He was not having the numbness in finger tips or mouth. Per the patient as well as the family member he was now back to his baseline. He was walking in the hallway without assistance. He denied having chest pain, denied shortness of breath, denied palpitations, denied abominal pain, denied headache , denied vision changes. The patient underwent CT scan as well as MRI and these were stable. The carotid studies were also stable and did not show stenosis As mentioned previously we ordered SPEP, Lambda and Botkins studies, as well to assess for potnetial multiple myeloma since there was a recent CT scan of the cervical spine which suggeted this maybe a possibility. The family member explains that the patient goes to the [facility]. The results of the blood work for multiple myeloma are send outs so we explained to them that we would not keep them in the hospital for the results to return which maybe some time but that we would discharge today and then they need to come back for the results in about one week. Patient has a history of DM, because of the symptoms he had he may very well have had a TIA and we explained to the patient's family that he needs to be on daily ASA, a statin, as well as an GINGER-I. We encouraged lifesytle changes and also diet and moderate exercise. Garret Kelley
--- NOTE | 2017-11-24 13:31 | VASCLAB ---
Date of service: 11/24/2017 PROCEDURE: HISTORY: Code stroke COMPARISON: None available. TECHNIQUE: Grayscale and duplex Doppler evaluation of the cervical carotid and vertebral arteries were performed. The common carotid, carotid bifurcations and cervical Internal Carotid Artery (ICA) and proximal External Carotid Artery (ECA) were evaluated. The vertebral arteries were evaluated for gross patency and flow direction. Report prepared by LOLY Enriquez FINDINGS: RIGHT CAROTID ARTERIES: 1. Common Carotid Artery: No significant focal plaque formation of the right common carotid artery. Maximum Peak Systolic velocity: 90 cm/sec: End-diastolic velocity 19 cm/sec. 2. Carotid Bifurcation: plaque formation. Maximum Peak Systolic velocity: 53 cm/sec: End-diastolic velocity 16 cm/sec. 3. Internal Carotid Artery: Plaque description: 3.1. Proximal Segment: Peak systolic velocity 88 cm/sec: End-diastolic velocity 32 cm/sec - % stenosis 0-15% 3.2. Middle Segment: Peak systolic velocity 83 cm/sec: End-diastolic velocity 32 cm/sec - % stenosis 0-15% 3.3. Distal Segment: Peak systolic velocity 62 cm/sec: End-diastolic velocity 27 cm/sec - % stenosis 0-15% 4. External Carotid Artery: No significant focal plaque formation. Peak systolic velocity 95 cm/sec 5. ICA/CCA Ratio: 1.0 LEFT CAROTID ARTERIES: 1. Common Carotid Artery: No significant focal plaque formation of the left common carotid artery. Maximum Peak Systolic velocity: 121 cm/sec: End-diastolic velocity 31 cm/sec. 2. Carotid Bifurcation: plaque formation. Maximum Peak Systolic velocity: 79 cm/sec: End-diastolic velocity 18 cm/sec. 3. Internal Carotid Artery: Plaque description: 3.1. Proximal Segment: Peak systolic velocity 79 cm/sec: End-diastolic velocity 29 cm/sec - % stenosis 0-15% 3.2. Middle Segment: Peak systolic velocity 87 cm/sec: End-diastolic velocity 34 cm/sec - % stenosis 0-15% 3.3. Distal Segment: Peak systolic velocity 84 cm/sec: End-diastolic velocity 31 cm/sec - % stenosis 0-15% 4. External Carotid Artery: No significant focal plaque formation. Peak systolic velocity 102 cm/sec 5. ICA/CCA Ratio: 0.8 VERTEBRAL ARTERIES: 1. Right Vertebral Artery: The right vertebral artery flow direction is antegrade. 2. Left Vertebral Artery: The left vertebral artery flow direction is antegrade. OTHER FINDINGS: 1. Right Brachial Blood pressure: 120/70 mmHg. 2. Left Brachial Blood pressure: 110/60 mmHg. IMPRESSION: RIGHT: Duplex scan does not suggest hemodynamically significant stenosis of the right extracranial carotid arteries. LEFT: Duplex scan does not suggest hemodynamically significant stenosis of the left extracranial carotid arteries.
[2017-11-24 15:09] VITALS: PULSE 82
--- NOTE | 2017-11-24 23:39 | CARD ---
APPROVED REPORT Date of service: 11/24/2017 EXAM: Two-dimensional and M-mode echocardiogram with Doppler and color Doppler. Other Information Quality : GoodRhythm : INDICATION CVA/TIA RISK FACTORS Diabetes 2D DIMENSIONS IVSd0.9 (0.7-1.1cm)Aortic Root (2D)3.5 (2.0-3.7cm) LVDd3.6 (3.9-5.9cm)PWd1.0 (0.7-1.1cm) LVDs2.5 (2.5-4.0cm)FS (%) 31.2 % LVEF (%)60.0 (>50%) M-Mode DIMENSIONS RVDd1.39 (2.1-3.2cm)Left Atrium (MM)3.63 (2.5-4.0cm) IVSd0.75 (0.7-1.1cm)Aortic Root3.39 (2.2-3.7cm) LVDd4.49 (4.0-5.6cm)Aortic Cusp Exc.2.23 (1.5-2.0cm) PWd1.08 (0.7-1.1cm)FS (%) 44 % LVDs2.50 (2.0-3.8cm)LVEF (%)76 (>50%) Mitral Valve MV E Nivfgswf22.3cm/sMV A Abibkhct24.5cm/sE/A ratio1.7 TDI E/Lateral E'0.0E/Medial E'0.0 Tricuspid Valve TR Peak [id number] Peak [id number] LEFT VENTRICLE The left ventricle is normal size. There is normal left ventricular wall thickness. Left ventricle systolic function is normal. The Ejection Fraction is 65-70%. There is normal LV segmental wall motion. The left ventricular diastolic function is normal. RIGHT VENTRICLE The right ventricle is normal size. There is normal right ventricular wall thickness. The right ventricular systolic function is normal. ATRIA The left atrium size is normal. The right atrium size is normal. The interatrial septum is intact with no evidence for an atrial septal defect. AORTIC VALVE The aortic valve is normal in structure. No aortic regurgitation is present. There is no aortic valvular stenosis. MITRAL VALVE The mitral valve is normal in structure. There is no evidence of mitral valve prolapse. There is no mitral valve stenosis. Mitral regurgitation is mild. TRICUSPID VALVE The tricuspid valve is normal in structure. There is trace to mild tricuspid regurgitation. Right ventricular systolic pressure is estimated at less than 30 mmHg. There is no pulmonary hypertension. PULMONIC VALVE The pulmonic valve is not well visualized. There is mild pulmonic valvular regurgitation. GREAT VESSELS The aortic root is normal in size. PERICARDIAL EFFUSION There is no significant pericardial effusion. <Conclusion> Left ventricle systolic function is normal. The Ejection Fraction is 65-70%. No aortic regurgitation is present. Mitral regurgitation is mild. There is trace to mild tricuspid regurgitation. There is no pulmonary hypertension. There is mild pulmonic valvular regurgitation.
--- NOTE | 2017-11-25 02:10 | CARD ---
APPROVED REPORT Date of service: 11/23/2017 EKG Measurement Heart [id number] <Conclusion> Normal sinus rhythm T wave abnormality, consider anterolateral ischemia Abnormal ECG
[2017-11-25 12:15] LABS: ALBUMIN (PEP) 3.5 g/dL (3.8-4.8); ALPHA-1-GLOBULIN (PEP) 0.4 g/dL (0.2-0.3)
== END 2017-11-24 13:13 | disposition home or self-care (01) | DRG 832 ==
LOC: C.ER 14:01 → C.9E 15:27 → C.6T 18:19
PROVIDERS: ADMIT Family Medicine; ATTEND Family Medicine
DX: G45.9 Transient cerebral ischemic attack, unspecified (principal); E11.9 Type 2 diabetes mellitus without complications

== ENCOUNTER 2018-03-23 07:46 | Emergency (ER) | payer OTHER ==
[2018-03-23 07:46] VITALS: BMI 26.6
[2018-03-23] MEDS ORDERED: Sodium Chloride 0.9% 1,000 ML IV ONE (08:19)
--- NOTE | 2018-03-23 08:22 | C.PDOC ---
History Of Present Illness 67 year old male with past medical history of hypertension and diabetes percents to the emergency department complaining of right-sided abdominal and flank pain x 1.5 weeks. Patient reports intermittent sharp pain to his right side not exacerbated by movement or eating. Associated weak urine stream occasionally and constipation. Tolerating PO per baseline. Has not taking any medications for pain. Denies fevers, chills, nausea, vomiting, diarrhea, dysuria, hematuria, frequency, numbness, weakness, parethesias, or any other associated complaints. Chief Complaint (Nursing): Abdominal Pain Past Medical History Reviewed: Historical Data, Nursing Documentation, Vital Signs Vital Signs: Last Vital Signs Temp 98.0 F 03/23/18 07:57 Pulse 58 L 03/23/18 07:57 Resp 18 03/23/18 07:57 BP 150/68 03/23/18 07:57 Pulse Ox 100 03/23/18 07:57 - Medical History PMH: Diabetes, HTN Family History: States: Unknown Family Hx - Social History Hx Alcohol Use: No Hx Substance Use: No - Immunization History Hx Tetanus Toxoid Vaccination: No Hx Influenza Vaccination: Yes Hx Pneumococcal Vaccination: Yes Review Of Systems Except As Marked, All Systems Reviewed And Found Negative. Constitutional: Negative for: Fever, Chills Eyes: Negative for: Vision Change ENT: Negative for: Nose Congestion Cardiovascular: Negative for: Chest Pain, Palpitations, Light Headedness Respiratory: Negative for: Cough, Shortness of Breath, Sputum, Wheezing Gastrointestinal: Positive for: Abdominal Pain. Negative for: Nausea, Vomiting Genitourinary: Negative for: Dysuria, Frequency, Penile Discharge, Scrotal Pain, Penile Pain Musculoskeletal: Positive for: Back Pain. Negative for: Neck Pain, Shoulder Pain Skin: Negative for: Rash Neurological: Negative for: Weakness, Numbness, Incoordination, Change in Speech, Headache, Dizziness Physical Exam - Physical Exam Appears: Well, Non-toxic, No Acute Distress Skin: Normal Color, Warm, Dry Head: Atraumatic, Normacephalic, No Tenderness Eye(s): bilateral: Normal Inspection, PERRL, EOMI Nose: Normal Throat: Normal Neck: Normal Chest: Symmetrical, No Deformity, No Tenderness Cardiovascular: Rhythm Regular Respiratory: Normal Breath Sounds Gastrointestinal/Abdominal: Normal Exam, Soft, Tenderness (RUQ, right flank) Back: Normal Inspection, CVA Tenderness (right), No Vertebral Tenderness, No Muscle Spasm Extremity: Normal ROM Extremity: Bilateral: Atraumatic, No Pedal Edema, Normal Color And Temperature, Normal ROM, Unable To Bear Weight Pulses: Left Radial: Normal, Right Radial: Normal Neurological/Psych: Oriented x3, Normal Speech, Normal Cognition, Normal Motor, Normal Sensation Gait: Steady ED Course And Treatment - Laboratory Results Result Diagrams: 03/23/18 08:40 03/23/18 09:12 Lab Interpretation: No Acute Changes ECG: Viewed By Me ECG Rhythm: Sinus Rhythm, ST/T Changes Interpretation Of EC:40 - rate 64, nsr, normal intervals, no STEMI, t wave inversions lateral and inferior leads. 12:33 - rate 58, sinus lainey, normal intervals, no STEMI, t wave inversions lateral and inferior leads. compared to 11/20/17, similar O2 Sat by Pulse Oximetry: 100 - Radiology CXR: Viewed By Me, Read By Radiologist CXR Interpretation: Yes: No Acute Disease - CT Scan/US CT Abd/Pelvis Other Rad Studies (CT/US): Read By Radiologist CT/US Interpretation: FINDINGS: LOWER THORAX: No visible consolidation, pleural effusion, or pneumothorax. LIVER: Unremarkable. GALLBLADDER AND BILE DUCTS: Unremarkable. PANCREAS: Unremarkable. SPLEEN: Unremarkable. ADRENALS: Unremarkable. KIDNEYS AND URETERS: Question presence of 3 mm calcification within the proximal ureter (series 3, image 84) with mild fullness of the right ureter. Left pelvic kidney. VASCULATURE: No aortic aneurysm. Mild atherosclerotic calcification/mural plaque present. BOWEL: Stomach is nondistended. Lack of oral contrast limits evaluation for bowel pathology. Bowel loops appear within normal limits of caliber without evidence of obstruction. Moderate diffuse constipation. APPENDIX: The appendix appears within normal limits of caliber. No secondary signs of acute appendicitis. PERITONEUM: No significant free fluid. No definite free air. LYMPH NODES: No bulky adenopathy identified. BLADDER: Unremarkable. REPRODUCTIVE: Unremarkable. BONES: Degenerative changes. OTHER FINDINGS: None. IMPRESSION: Question presence of 3 mm calcification within the proximal ureter (series 3, image 84) with mild fullness of the right ureter. Left pelvic kidney. Moderate diffuse constipation. Medical Decision Making Medical Decision Making: Initial Plan: * CBC, CMP * Lipase * Troponin * UA * EKG * CXR * CT Abd/Pelvis * IVF * Toradol * Zofran * Pepcid 11:00 Patient reports decreased pain with medications. 12:30 Troponin initially negative, and trending down at 3 hour veto. Low suspicion for cardiac origin of pain, will discharge home. All other labs unremarkable Case discussed with ED attending Dr. Townsend, who agrees with plan of care and disposition of patient. Diagnostic testing results and plan of care discussed with patient, and strict instructions given regarding prescriptions, importance of follow up, and signs to return to Emergency Department, to include worsening pain, N/V, fevers, chi lls, or any other new/worsening symptoms. Patient verbalizes understanding of discussion. Patient A&Ox3, ambulating with steady gait, stable for discharge home. Disposition - Disposition Referrals: Claus Chávez MD [Staff Provider] - Disposition: HOME/ ROUTINE Disposition Time: 13:30 Condition: GOOD Additional Instructions: [place] flomax diariamente x 1 semana Drea antibiticos diariamente x 1 semana. Ibuprofeno cada 8 horas segn sea necesario para el dolor. Seguimiento con urologa en 2 hawkins. Regrese a la mark de emergencias para cualquier sntoma nuevo / que empeora. Prescriptions: Ciprofloxacin [Cipro] 500 mg PO Q12H #14 tab Ibuprofen [Motrin Tab] 600 mg PO Q8H #30 tab Tamsulosin [Flomax] 0.4 mg PO DAILY #7 cap Instructions: Kidney Stones in Adults, Renal Colic Forms: Gen Discharge Inst Slovak, [employer] [facility] (Slovak), Work Excuse - Clinical Impression Clinical Impression: Kidney stone, Renal colic
[2018-03-23 08:53] LABS: BASO # 0.1 K/uL (0.0-0.2); BASO % 1.1 % (0.0-2.0); EOS # 0.4 K/uL (0.0-0.7); EOS % 5.8 % (0.0-4.0); HEMOGLOBIN 12.5 g/dL (12.0-18.0); LYMPH # 2.5 K/uL (1.0-4.3); MEAN CELL VOLUME 91.1 fL (80.0-94.0); MEAN CORPUSCULAR HEMOGLOBIN 30.5 pg (27.0-31.0); MEAN CORPUSCULAR HGB CONC 33.4 g/dL (33.0-37.0); MEAN PLATELET VOLUME 11.5 fL (7.2-11.7); MONO # 0.7 K/uL (0.0-0.8); MONO % 11.4 % (0.0-10.0); NEUT # 2.7 K/uL (1.8-7.0); NEUT % 42.7 % (50.0-75.0); NRBC % 0.1 % (0.0-2.0); RBC 4.11 Mil/uL (4.40-5.90); WHITE BLOOD COUNT 6.4 K/uL (4.8-10.8)
[2018-03-23 09:00] LABS: INR 1.1; PROTHROMBIN TIME 12.4 SECONDS (9.7-12.2)
[2018-03-23 09:24] LABS: URINE BILIRUBIN NEGATIVE (NEGATIVE); URINE BLOOD NEGATIVE (NEGATIVE); URINE CLARITY Clear (Clear); URINE COLOR Yellow (YELLOW); URINE GLUCOSE (UA) NORMAL (Normal); URINE LEUKOCYTE ESTERASE NEG Leu/uL (Negative); URINE UROBILINOGEN NORMAL mg/dL (0.2-1.0)
[2018-03-23 09:25] LABS: URINE PROTEIN 1+ mg/dL (NEGATIVE)
[2018-03-23 09:35] LABS: ALB/GLOB RATIO 1.1 (1.0-2.1); ALBUMIN 3.4 g/dL (3.5-5.0); ALT/SGPT 28 U/L (21-72); AST/SGOT 21 U/L (17-59); BLOOD UREA NITROGEN 12 mg/dL (9-20); CALCIUM 8.4 mg/dl (8.6-10.4); GFR NON-AFRICAN AMERICAN > 60; LIPASE 184 U/L (23-300)
[2018-03-23] MEDS ORDERED: Iodixanol 320 MG/ML 100 ML BOTTLE IV ONE (10:06)
--- NOTE | 2018-03-23 10:33 | RAD ---
Date of service: 03/23/2018 HISTORY: abdominal pain COMPARISON: 11/23/2017 FINDINGS: LUNGS: Lung volumes slightly shallow. Overall bronchovascular markings slightly prominent--mild pulmonary venous congestion and/or mild bronchitis and/or viral pneumonitis are some considerations.No consolidation appreciated. PLEURA: No significant pleural effusion identified,; trace left pleural effusion not excluded. No pneumothorax apparent. CARDIOVASCULAR: There is absence of aortic atherosclerotic calcification on x-ray. Normal cardiac size. Probable mild pulmonary venous congestion.-prior right hilar appearance on the 11/23/2017 study is less prominent the current study. OSSEOUS STRUCTURES: Bilateral shoulder arthrosis. VISUALIZED UPPER ABDOMEN: Normal. OTHER FINDINGS: None. IMPRESSION: No consolidative infiltrate. Mild perihilar bronchovascular marking prominence -mild pulmonary venous congestion probable. Trace left pleural effusion not excluded. Shallow lung volume status noted. No cardiomegaly appreciated. No history of cough or fever offered are denied. A perihilar bronchitis and/or viral pneumonitis not excluded. Clinical correlation essential.
--- NOTE | 2018-03-23 11:38 | CT ---
Date of service: 03/23/2018 PROCEDURE: CT Abdomen and Pelvis with contrast HISTORY: abd pain COMPARISON: None available TECHNIQUE: Contrast dose: 100 mL Visipaque 320 IV Radiation dose: Total exam DLP = 404.38 mGy-cm. This CT exam was performed using one or more of the following dose reduction techniques: Automated exposure control, adjustment of the mA and/or kV according to patient size, and/or use of iterative reconstruction technique. FINDINGS: LOWER THORAX: No visible consolidation, pleural effusion, or pneumothorax. LIVER: Unremarkable. GALLBLADDER AND BILE DUCTS: Unremarkable. PANCREAS: Unremarkable. SPLEEN: Unremarkable. ADRENALS: Unremarkable. KIDNEYS AND URETERS: Question presence of 3 mm calcification within the proximal ureter (series 3, image 84) with mild fullness of the right ureter. Left pelvic kidney. VASCULATURE: No aortic aneurysm. Mild atherosclerotic calcification/mural plaque present. BOWEL: Stomach is nondistended. Lack of oral contrast limits evaluation for bowel pathology. Bowel loops appear within normal limits of caliber without evidence of obstruction. Moderate diffuse constipation. APPENDIX: The appendix appears within normal limits of caliber. No secondary signs of acute appendicitis. PERITONEUM: No significant free fluid. No definite free air. LYMPH NODES: No bulky adenopathy identified. BLADDER: Unremarkable. REPRODUCTIVE: Unremarkable. BONES: Degenerative changes. OTHER FINDINGS: None. IMPRESSION: Question presence of 3 mm calcification within the proximal ureter (series 3, image 84) with mild fullness of the right ureter. Left pelvic kidney. Moderate diffuse constipation.
[2018-03-23 13:48] VITALS: BP 140/84; PULSE 78; RESP 20; TEMP 97.2
[2018-03-23 22:58] VITALS: O2SAT 100
--- NOTE | 2018-03-24 12:03 | CARD ---
APPROVED REPORT Date of service: 03/23/2018 EKG Measurement Heart [id number] [place] [id number] [id number] <Conclusion> Normal sinus rhythm T wave abnormality, consider lateral ischemia Abnormal ECG
--- NOTE | 2018-03-24 12:11 | CARD ---
APPROVED REPORT Date of service: 03/23/2018 EKG Measurement Heart [id number] CT 156P31 [id number] <Conclusion> Sinus bradycardia T wave abnormality, consider anterolateral ischemia Abnormal ECG
== END 2018-03-23 13:49 | disposition home or self-care (01) ==
LOC: C.ER 07:46
DX: N20.0 Calculus of kidney (principal); E11.9 Type 2 diabetes mellitus without complications; I10 Essential (primary) hypertension
CPT/HCPCS: 71045; 74177; 80053; 81001; 82948; 83690; 84484; 85025; 85610; 85730; 93005; 96361; 96374; 96375; 99285; J1885; J7030; Q9967